=== PATIENT | male | born 1950 | race Caucasian/White ===

== ENCOUNTER → 2023-08-12 06:26 | Outpatient (REF) | payer MEDICARE, OTHER, SELFPAY ==
[2023-08-12 07:53] LABS: ALT (SGPT) 20 U/L (0-50); AST (SGOT) 30 U/L (17-59); Albumin 4.1 g/dl (3.5-5.0); Alkaline Phosphatase 42 U/L (38-126); Blood Urea Nitrogen 21 mg/dl (9-20); Calcium 9.2 mg/dl (8.4-10.2); Carbon Dioxide 23 mmol/L (22-30); Chloride 108 mmol/L (98-107); Glucose 95 mg/dl (70-99); HDL Cholesterol 37 mg/dl; LDL Cholesterol, Calculated 120 mg/dl; Potassium 4.4 mmol/L (3.5-5.1); Sodium 138 mmol/L (135-145); Total Bilirubin 0.5 mg/dl (0.2-1.3); Total Cholesterol 184 mg/dl (50-199); Total Protein 6.7 g/dl (6.3-8.2); Triglyceride 139 mg/dl (10-149); Very Low Density Lipoprotein 27 mg/dl (0-30); eGFR > 60.00
== END ==
LOC: REG 06:26
PROVIDERS: ATTENDING PHYSICIAN Internal Medicine Cardiovascular Disease; FAMILY PHYSICIAN Family Medicine
DX: E78.00 Pure hypercholesterolemia, unspecified (principal); E78.2 Mixed hyperlipidemia
CPT/HCPCS: 36415; 80053; 80061

== ENCOUNTER → 2023-08-26 09:59 | Outpatient (REF) | payer MEDICARE, OTHER, SELFPAY | LOC: HWRAD 09:59 | PROVIDERS: ATTENDING PHYSICIAN Internal Medicine Cardiovascular Disease; FAMILY PHYSICIAN Family Medicine | DX: E78.2 Mixed hyperlipidemia (principal); Z82.49 Family history of ischemic heart disease and other diseases of the circulatory system | CPT/HCPCS: 75571 ==

== ENCOUNTER → 2024-02-21 06:20 | Outpatient (REF) | payer MEDICARE, OTHER, SELFPAY ==
[2024-02-21 09:14] LABS: PSA, Total - Screen 3.16 ng/ml (0.0-4.0)
== END ==
LOC: REG 06:20
PROVIDERS: ATTENDING PHYSICIAN Specialist; FAMILY PHYSICIAN Family Medicine
DX: Z12.5 Encounter for screening for malignant neoplasm of prostate (principal)
CPT/HCPCS: 36415; G0103

== ENCOUNTER → 2024-03-16 06:23 | Outpatient (REF) | payer MEDICARE, OTHER, SELFPAY ==
[2024-03-16 07:14] LABS: % Basophils 0.8 % (0-2); % Eosinophils 1.3 % (0-6); % Immature Granulocytes 0.3 % (0-0.5); % Lymphocytes 32.4 % (20.5-51.1); % Monocytes 8.5 % (1.7-9.3); % Neutrophils 56.7 % (42.2-75.2); Absolute Basophils 0.1 10^3/uL (0-0.2); Absolute Eosinophils 0.1 10^3/uL (0-0.7); Absolute Lymphocytes 2.3 10^3/uL (1.2-3.4); Absolute Monocytes 0.6 10^3/uL (0.1-0.6); Hematocrit 38.5 % (39.0-52.0); Hemoglobin 12.3 g/dL (13.0-18.0); Mean Corp Hgb Conc. 31.9 g/dL (33.0-37.0); Mean Corpuscular Hgb 22.4 pg (27.0-31.0); Mean Corpuscular Volume 70.3 fL (80.0-94.0); Mean Platelet Volume 10.4 fL (7.4-10.4); Nucleated Red Blood Cells % 0 % (-); Platelet Count 174 10^3/uL (130-400); Red Blood Cell Count 5.48 10^6/uL (4.70-6.10); Red Cell Dist. Width 15.6 % (11.5-14.5); White Blood Cell Count 7.1 10^3/uL (4.8-10.8)
[2024-03-16 07:45] LABS: ALT (SGPT) 18 U/L (0-50); AST (SGOT) 23 U/L (17-59); Alkaline Phosphatase 49 U/L (38-126); Blood Urea Nitrogen 21 mg/dl (9-20); Calcium 8.7 mg/dl (8.4-10.2); Carbon Dioxide 27 mmol/L (22-30); Chloride 106 mmol/L (98-107); Glucose 96 mg/dl (70-99); Potassium 4.7 mmol/L (3.5-5.1); Sodium 140 mmol/L (135-145); Total Bilirubin 0.6 mg/dl (0.2-1.3); Total Protein 6.4 g/dl (6.3-8.2); eGFR > 60.00
== END ==
LOC: REG 06:23
PROVIDERS: ATTENDING PHYSICIAN Family Medicine
DX: Z13.220 Encounter for screening for lipoid disorders (principal); Z13.0 Encounter for screening for diseases of the blood and blood-forming organs and certain disorders involving the immune mechanism; Z79.899 Other long term (current) drug therapy
CPT/HCPCS: 36415; 80053; 85025

== ENCOUNTER → 2024-09-28 13:48 | Outpatient (REF) | payer MEDICARE, OTHER, SELFPAY | LOC: MRI 3T 13:48 | PROVIDERS: ATTENDING PHYSICIAN Physician Assistant Surgical; FAMILY PHYSICIAN Family Medicine | DX: M23.92 Unspecified internal derangement of left knee (principal) | CPT/HCPCS: 73721 ==

== ENCOUNTER → 2024-10-26 06:24 | Outpatient (REF) | payer MEDICARE, OTHER, SELFPAY ==
[2024-10-26 07:30] LABS: Hematocrit 35.9 % (39.0-52.0); Hemoglobin 11.6 g/dL (13.0-18.0); Mean Corp Hgb Conc. 32.3 g/dL (33.0-37.0); Mean Corpuscular Volume 69.4 fL (80.0-94.0); Nucleated Red Blood Cells % 0 % (-); Platelet Count 195 10^3/uL (130-400); Red Cell Dist. Width 15.8 % (11.5-14.5)
[2024-10-26 07:56] LABS: Blood Urea Nitrogen 19 mg/dl (9-20); Calcium 9.2 mg/dl (8.4-10.2); Carbon Dioxide 25 mmol/L (22-30); Chloride 111 mmol/L (98-107); Glucose 79 mg/dl (70-99); Potassium 4.5 mmol/L (3.5-5.1); Sodium 140 mmol/L (135-145); eGFR > 60.00
== END ==
LOC: RCS 06:24
PROVIDERS: ATTENDING PHYSICIAN Specialist; FAMILY PHYSICIAN Family Medicine
DX: Z01.818 Encounter for other preprocedural examination (principal)
CPT/HCPCS: 36415; 80048; 85025; 93005

== ENCOUNTER → 2024-11-11 07:00 | Outpatient (REF) | payer MEDICARE, OTHER, SELFPAY ==
[2024-11-11 09:11] LABS: HDL Cholesterol 42 mg/dl; LDL Cholesterol, Calculated 146 mg/dl; Very Low Density Lipoprotein 24 mg/dl (0-30)
[2024-11-11 09:20] LABS: Vitamin D, 25-OH*** 44.6 ng/mL (30-80)
[2024-11-11 09:34] LABS: TSH 1.76 uIU/ml (0.47-4.68)
[2024-11-11 09:53] LABS: Vitamin B12 377 pg/ml (239-931)
[2024-11-11 19:07] LABS: Hepatitis B Surface Antigen Negative (Negative)
[2024-11-11 19:25] LABS: Hepatitis C Antibody Negative (Negative)
[2024-11-13 04:53] LABS: ANA, IgG Reflex to HEp-2 None Detected (None Detected)
[2024-11-13 08:33] LABS: Copper, Serum 103.7 ug/dL (70.0-140.0)
[2024-11-13 15:57] LABS: Lyme Antibody Screen, EIA Negative (Negative)
[2024-11-14 07:35] LABS: Albumin 4.30 g/dL (3.75-5.01); SPEP IFE Reflex Not Done; Total Protein-Electrophoresis 6.8 g/dL (6.3-8.2)
== END ==
LOC: REG 07:00
PROVIDERS: ATTENDING PHYSICIAN Psychiatry & Neurology Neuromuscular Medicine; FAMILY PHYSICIAN Family Medicine
DX: E55.9 Vitamin D deficiency, unspecified (principal); G62.9 Polyneuropathy, unspecified; E03.9 Hypothyroidism, unspecified; E53.8 Deficiency of other specified B group vitamins; E53.1 Pyridoxine deficiency; E78.2 Mixed hyperlipidemia; G31.84 Mild cognitive impairment of uncertain or unknown etiology
CPT/HCPCS: 36415; 80061; 82164; 82306; 82525; 82607; 82652; 83921; 84155; 84165; 84207; 84443; 84630; 86038; 86235; 86618; 86706; 86780; 86803; 87340; 87389

== ENCOUNTER → 2024-11-13 06:31 | Outpatient (REF) | payer MEDICARE, OTHER, SELFPAY | LOC: REG 06:31 | PROVIDERS: ATTENDING PHYSICIAN Psychiatry & Neurology Neuromuscular Medicine; FAMILY PHYSICIAN Family Medicine | DX: G62.9 Polyneuropathy, unspecified (principal) | CPT/HCPCS: 36415; 81050 ==